=== PATIENT | female | born 1980 | race African-American/Black ===

== ENCOUNTER 2018-02-13 17:07 | Emergency (ER) | payer BC, SELFPAY | END 2018-02-13 17:45 | disposition home or self-care (01) | LOC: MADERS 17:07 | DX: J34.89 Other specified disorders of nose and nasal sinuses (principal) | CPT/HCPCS: 99283 ==

== ENCOUNTER 2025-03-02 09:51 | Emergency (ER) | payer BC, OTHER ==
[2025-03-02 10:41] LABS: Glucose, Urine (Dipstick) Negative (Negative); Leukocyte Negative (Negative); Protein, Urine (Dipstick) Negative (Neg-Trace); Specific Gravity, Urine 1.025 (1.005-1.030)
[2025-03-02 10:42] LABS: Pregnancy Test - Urine (BHCG) Negative (Negative); Pregu Control Background? CLEAR/WHITE (CLR/WHITE); Pregu Control Bar Appear? YES (CONTROL BAR)
[2025-03-02 10:50] LABS: Bacteria/HPF Rare-Few HPF (None Seen); CAUTI Indications for Culture Pelvic or flank pain; RBC/HPF 0-3 HPF (0-3); WBC/HPF 0-3 HPF (0-3)
[2025-03-02 10:51] LABS: Urine Culture Reflex No No
[2025-03-02] MEDS ORDERED: Ketorolac Tromethamine 30 MG (1 mL) VIAL ONE (10:54)
[2025-03-02] MEDS ORDERED: predniSONE 20 MG TAB ONE (10:56)
== END 2025-03-02 11:01 | disposition home or self-care (01) ==
LOC: MADERS 09:51
DX: M54.50 Low back pain, unspecified (principal)
CPT/HCPCS: 81001; 81025; 96372; 99283; J1885; J7512